=== PATIENT | female | born 1950 | race Two or more races ===

== ENCOUNTER 2016-10-30 18:30 | Inpatient (IN) | payer MEDICAID, OTHER ==
[~2016-10-30] VITALS: Ht 157.5 cm; Wt 113.9 kg
[2016-10-30 19:47] LABS: DEFINITIVE VIEW TRANSMISSION; Hematocrit 48.4 % (36.0-46.0); Mean Corpuscular Hemoglobin 27.8 pg (28.0-32.0); Mean Corpuscular Hgb Conc. 31.1 g/dL (32.0-36.0); Mean Corpuscular Volume 89.5 fL (80.0-100.0); Platelet Count (auto) 283 10^3/uL (140-450); Red Cell Distribution Width 13.5 % (11.6-16.0); SUSPECT VIEW TRANSMISSION; White Blood Cell 27.3 10^3/uL (4.4-10.8)
[2016-10-30 19:50] LABS: Metamyelocytes % 0; Myelocytes % 0; Promyelocytes % 0; Reactive Lymphocytes 0
[2016-10-30 19:58] LABS: Calcium 8.4 mg/dL (8.5-10.1)
[2016-10-30 20:01] LABS: BUN/Creatinine Ratio 13.9
[2016-10-30 20:03] LABS: Bilirubin, Total 0.5 mg/dL (0.2-1.0); Total Protein 7.4 g/dL (6.4-8.2)
[2016-10-30 20:09] LABS: Albumin 2.5 g/dL (3.4-5.0)
[2016-10-30 22:01] LABS: Anisocytosis Slight; Platelet Estimate Adequate
[2016-10-30] MEDS ORDERED: SODIUM CHLORIDE 0.9% 1,000 ML IV ONE (22:45)
[2016-10-30] MEDS ORDERED: ALBUTEROL SULF 2.5 MG/0.5ML(0.5%) NEB SOLN NEB ONE (23:45)
[2016-10-30] MEDS ORDERED: FUROSEMIDE 20 MG/2 ML VIAL IV ONE (23:45)
[2016-10-30] MEDS ORDERED: IPRATROPIUM BROM 0.5 MG/2.5ML INH SOL NEB ONE (23:45)
[2016-10-31] VITALS (47 sets, daily range): BP systolic 83–135; BP diastolic 42–85
[2016-10-31] MEDS ORDERED: VANCOMYCIN PER PHARMACY 0 MG IV SCH (00:30)
[2016-10-31] MEDS ORDERED: VANCOMYCIN 1GM/250ML D5W 250 ML IV ONE (00:30)
[2016-10-31] MEDS ORDERED: LACTULOSE 20Gm/30ML SOLN PO PRN (00:30)
[2016-10-31] MEDS ORDERED: LEVOFLOXACIN 500MG 100 ML IV ONE (00:30)
[2016-10-31] MEDS ORDERED: MORPHINE SULF INJ 2 MG/ML SYRINGE 1ML IV PRN (00:30)
[2016-10-31] MEDS ORDERED: NITROGLYCERIN 0.4 MG SL TAB SL PRN (00:30)
[2016-10-31] MEDS ORDERED: ONDANSETRON HCL 4 MG/2 ML VIAL IV PRN (00:30)
[2016-10-31 00:51] LABS: B-Type Natriuretic Peptide 59.5 pg/mL (0-100)
[2016-10-31 01:25] LABS: Lactic Acid 2.6 mmol/L (0.4-2.0)
[2016-10-31 01:28] LABS: REFLEX LACTIC ACID YES OR NO NO
[2016-10-31] MEDS: IPRATROPIUM BROM 0.5 MG/2.5ML INH SOL NEB SCH ×6 (04:20→22:42)
[2016-10-31] MEDS: ALBUTEROL SULF 2.5 MG/0.5ML(0.5%) NEB SOLN NEB SCH ×6 (04:21→22:42)
[2016-10-31] MEDS: MORPHINE SULF INJ 2 MG/ML SYRINGE 1ML IV PRN ×3 (04:54→21:46)
[2016-10-31] MEDS: methylPREDNISolone SOD SUCC 125 MG/2 ML VL IV SCH ×3 (05:00→21:39)
[2016-10-31 06:37] LABS: Albumin 2.1 g/dL (3.4-5.0); Calcium 7.9 mg/dL (8.5-10.1); Potassium 3.8 mmol/L (3.5-5.1)
[2016-10-31 06:40] LABS: BUN/Creatinine Ratio 16.2
[2016-10-31 06:42] LABS: Bilirubin, Total 0.4 mg/dL (0.2-1.0); Total Protein 6.7 g/dL (6.4-8.2)
[2016-10-31] MEDS ORDERED: FUROSEMIDE 40 MG/4 ML VIAL IV SCH (10:00)
[2016-10-31] MEDS: ENOXAPARIN SOD 30 MG/0.3 ML SYRINGE SC SCH (10:27)
[2016-10-31] MEDS: PANTOPRAZOLE SODIUM 40 MG/10 ML VIAL IV SCH (10:27)
[2016-10-31] MEDS: SODIUM CHLORIDE 0.9% 1,000 ML IV SCH ×2 (16:59→21:40)
[2016-10-31] MEDS: LEVOFLOXACIN 250MG 50 ML IV SCH ×2 (21:37→21:48)
[2016-11-01] MEDS: IPRATROPIUM BROM 0.5 MG/2.5ML INH SOL NEB SCH ×6 (02:22→22:10)
[2016-11-01] MEDS: ALBUTEROL SULF 2.5 MG/0.5ML(0.5%) NEB SOLN NEB SCH ×6 (02:22→22:10)
[2016-11-01] MEDS: MORPHINE SULF INJ 2 MG/ML SYRINGE 1ML IV PRN ×2 (03:03→22:21)
[2016-11-01 03:58] VITALS: BP 114/53
[2016-11-01 06:01] LABS: Hematocrit 41.5 % (36.0-46.0); Hemoglobin 13.1 g/dL (12.2-16.2); Mean Corpuscular Hemoglobin 28.2 pg (28.0-32.0); Mean Corpuscular Hgb Conc. 31.7 g/dL (32.0-36.0); Mean Corpuscular Volume 88.9 fL (80.0-100.0); Mean Platelet Volume 9.6 fL (7.4-10.4); Platelet Count (auto) 242 10^3/uL (140-450); Red Cell Distribution Width 13.5 % (11.6-16.0); SUSPECT VIEW TRANSMISSION; White Blood Cell 11.1 10^3/uL (4.4-10.8)
[2016-11-01 06:04] LABS: Metamyelocytes % 0; Myelocytes % 0; Promyelocytes % 0; Reactive Lymphocytes 0
[2016-11-01 06:14] LABS: BUN/Creatinine Ratio 24.7; Magnesium 2.3 mg/dL (1.6-2.6); Potassium 4.1 mmol/L (3.5-5.1)
[2016-11-01 06:26] LABS: Bilirubin, Total 0.2 mg/dL (0.2-1.0); Total Protein 6.7 g/dL (6.4-8.2)
[2016-11-01 07:46] VITALS: BP 108/56
[2016-11-01 08:38] LABS: Large Platelets FEW; Platelet Estimate Adequate
[2016-11-01] MEDS: PANTOPRAZOLE SODIUM 40 MG/10 ML VIAL IV SCH (09:27)
[2016-11-01] MEDS: ENOXAPARIN SOD 30 MG/0.3 ML SYRINGE SC SCH (09:28)
[2016-11-01] MEDS: methylPREDNISolone SOD SUCC 125 MG/2 ML VL IV SCH ×2 (09:28→21:30)
[2016-11-01 11:49] VITALS: BP 115/68
[2016-11-01 14:39] LABS: Urine Bilirubin Negative (Negative); Urine Color Yellow (Yellow); Urine Glucose TRACE mg/dL (Normal); Urine Hyaline Cast FEW /lpf (0 - 2); Urine Ketone Negative (Negative); Urine Mucus FEW (None Seen); Urine Nitrite Negative (Negative); Urine RBC 43 /hpf (0 - 4); Urine Squamous Epithelial Cell FEW /hpf (<5); Urine Urobilinogen Normal (Negative); Urine WBC Clumps PRESENT /hpf (None Seen); Urine pH 5.5 (5.0-8.0)
[2016-11-01 15:19] LABS: Urine Blood 2+ /uL (Negative)
[2016-11-01] MEDS ORDERED: FUROSEMIDE 40 MG/4 ML VIAL IV ONE (15:30)
[2016-11-01 15:49] VITALS: BP 111/61
[2016-11-01] MEDS: SODIUM CHLORIDE 0.9% 1,000 ML IV SCH (17:55)
[2016-11-01 20:00] VITALS: BP 103/55
[2016-11-01] MEDS ORDERED: LEVOFLOXACIN 250MG 50 ML IV SCH (21:00)
[2016-11-01] MEDS: SORE THROAT SPRAY 6OZ BOTTLE MT PRN (21:27)
[2016-11-01 23:59] VITALS: BP 107/50
[2016-11-02] MEDS: IPRATROPIUM BROM 0.5 MG/2.5ML INH SOL NEB SCH ×6 (02:38→22:15)
[2016-11-02] MEDS: ALBUTEROL SULF 2.5 MG/0.5ML(0.5%) NEB SOLN NEB SCH ×6 (02:38→22:15)
[2016-11-02] MEDS: MORPHINE SULF INJ 2 MG/ML SYRINGE 1ML IV PRN ×3 (02:42→08:07)
[2016-11-02 04:15] VITALS: BP 112/65
[2016-11-02 06:08] LABS: Hematocrit 42.6 % (36.0-46.0); Hemoglobin 13.6 g/dL (12.2-16.2); Mean Corpuscular Hemoglobin 28.2 pg (28.0-32.0); Mean Corpuscular Hgb Conc. 31.9 g/dL (32.0-36.0); Mean Corpuscular Volume 88.6 fL (80.0-100.0); Mean Platelet Volume 9.5 fL (7.4-10.4); Platelet Count (auto) 288 10^3/uL (140-450); Red Cell Distribution Width 13.4 % (11.6-16.0); SUSPECT VIEW TRANSMISSION
[2016-11-02 06:12] LABS: Metamyelocytes % 0; Myelocytes % 0; Promyelocytes % 0; Reactive Lymphocytes 0
[2016-11-02 06:30] LABS: BUN/Creatinine Ratio 34.9; Calcium 8.6 mg/dL (8.5-10.1); Potassium 3.9 mmol/L (3.5-5.1)
[2016-11-02] MEDS: SODIUM CHLORIDE 0.9% 1,000 ML IV SCH (07:15)
[2016-11-02 07:47] LABS: Large Platelets FEW; Platelet Estimate Adequate
[2016-11-02 08:00] VITALS: BP 132/83
[2016-11-02] MEDS ORDERED: LEVOFLOXACIN 500MG 100 ML IV SCH (10:00)
[2016-11-02] MEDS: PANTOPRAZOLE SODIUM 40 MG/10 ML VIAL IV SCH (10:09)
[2016-11-02] MEDS: ENOXAPARIN SOD 30 MG/0.3 ML SYRINGE SC SCH (10:10)
[2016-11-02] MEDS: methylPREDNISolone SOD SUCC 125 MG/2 ML VL IV SCH ×2 (10:10→21:32)
[2016-11-02 12:00] VITALS: BP 128/58
[2016-11-02] MEDS ORDERED: PANTOPRAZOLE 40 MG TAB PO ONE (13:15)
[2016-11-02 16:00] VITALS: BP 138/64
[2016-11-02 20:00] VITALS: BP 135/59
[2016-11-02] MEDS: LEVOFLOXACIN 750MG 150 ML IV SCH (21:31)
[2016-11-02] MEDS: ENOXAPARIN SOD 40 MG/0.4 ML SYRINGE SC SCH (21:32)
[2016-11-02] MEDS: HYDROcodone-ACET 5/325MG TAB PO PRN (21:33)
[2016-11-03] VITALS (7 sets, daily range): BP systolic 113–132; BP diastolic 57–85
[2016-11-03] MEDS: IPRATROPIUM BROM 0.5 MG/2.5ML INH SOL NEB SCH ×6 (02:18→23:24)
[2016-11-03] MEDS: ALBUTEROL SULF 2.5 MG/0.5ML(0.5%) NEB SOLN NEB SCH ×6 (02:18→23:24)
[2016-11-03] MEDS: SORE THROAT SPRAY 6OZ BOTTLE MT PRN (06:44)
[2016-11-03] MEDS: PANTOPRAZOLE 40 MG TAB PO SCH (10:40)
[2016-11-03] MEDS: ENOXAPARIN SOD 40 MG/0.4 ML SYRINGE SC SCH ×2 (10:40→21:22)
[2016-11-03] MEDS: methylPREDNISolone SOD SUCC 125 MG/2 ML VL IV SCH ×2 (10:40→21:22)
[2016-11-03] MEDS ORDERED: SODIUM CHLORIDE 0.9% 1,000 ML IV SCH (12:28)
[2016-11-03 14:00] LABS: Amylase 36 U/L (25-115)
[2016-11-03] MEDS ORDERED: ALBUTEROL SULF 2.5 MG/0.5ML(0.5%) NEB SOLN NEB PRN (15:45)
[2016-11-03] MEDS ORDERED: IPRATROPIUM BROM 0.5 MG/2.5ML INH SOL NEB PRN (15:45)
[2016-11-03] MEDS: LORazepam 0.5 MG TAB PO PRN (21:23)
[2016-11-04 05:36] VITALS: BP 115/63
[2016-11-04 05:51] LABS: Potassium 4.3 mmol/L (3.5-5.1)
[2016-11-04 05:57] LABS: Albumin 2.1 g/dL (3.4-5.0); BUN/Creatinine Ratio 33.3; Bilirubin, Total 0.3 mg/dL (0.2-1.0); Calcium 8.2 mg/dL (8.5-10.1)
[2016-11-04 06:01] LABS: Basophils # (auto) 0 uL; Eosinophils # (auto) 0 uL; Eosinophils % (auto) 0.1 % (0.0-7.0); Hemoglobin 14.5 g/dL (12.2-16.2); Lymphocytes # (auto) 1.3 uL; Lymphocytes % (auto) 11.8 % (10.0-50.0); Mean Corpuscular Hemoglobin 27.9 pg (28.0-32.0); Mean Corpuscular Hgb Conc. 31.5 g/dL (32.0-36.0); Mean Corpuscular Volume 88.4 fL (80.0-100.0); Mean Platelet Volume 8.9 fL (7.4-10.4); Monocytes # (auto) 0.1 uL; Monocytes % (auto) 1.2 % (0.0-12.0); Neutrophils # (auto) 9.4 uL; Neutrophils % (auto) 86.9 % (37.0-80.0); Platelet Count (auto) 299 10^3/uL (140-450); Red Cell Distribution Width 13.3 % (11.6-16.0); White Blood Cell 10.8 10^3/uL (4.4-10.8)
[2016-11-04] MEDS: IPRATROPIUM BROM 0.5 MG/2.5ML INH SOL NEB SCH ×3 (06:46→19:10)
[2016-11-04] MEDS: ALBUTEROL SULF 2.5 MG/0.5ML(0.5%) NEB SOLN NEB SCH ×3 (06:46→19:10)
[2016-11-04] MEDS: HYDROcodone-ACET 5/325MG TAB PO PRN ×2 (07:59→23:54)
[2016-11-04 08:34] VITALS: BP 109/67
[2016-11-04] MEDS: methylPREDNISolone SOD SUCC 125 MG/2 ML VL IV SCH (09:29)
[2016-11-04] MEDS: ENOXAPARIN SOD 40 MG/0.4 ML SYRINGE SC SCH (09:29)
[2016-11-04] MEDS: PANTOPRAZOLE 40 MG TAB PO SCH (09:29)
[2016-11-04] MEDS: SODIUM CHLORIDE 0.9% 1,000 ML IV SCH (13:29)
[2016-11-04 13:53] VITALS: BP 124/68
[2016-11-04 16:54] VITALS: BP 137/66
[2016-11-04] MEDS: LEVOFLOXACIN 750MG 150 ML IV SCH (21:20)
[2016-11-04] MEDS: LORazepam 0.5 MG TAB PO PRN (21:26)
[2016-11-04 21:45] VITALS: BP 121/62
[2016-11-05] MEDS: IPRATROPIUM BROM 0.5 MG/2.5ML INH SOL NEB SCH ×4 (00:45→19:08)
[2016-11-05] MEDS: ALBUTEROL SULF 2.5 MG/0.5ML(0.5%) NEB SOLN NEB SCH ×4 (00:45→19:08)
[2016-11-05 05:05] VITALS: BP 99/56
[2016-11-05] MEDS: SODIUM CHLORIDE 0.9% 1,000 ML IV SCH (06:21)
[2016-11-05] MEDS: LORazepam 0.5 MG TAB PO PRN (06:29)
[2016-11-05 06:34] LABS: BUN/Creatinine Ratio 33.8; Calcium 8.1 mg/dL (8.5-10.1); Potassium 3.9 mmol/L (3.5-5.1)
[2016-11-05 09:00] VITALS: BP 103/60
[2016-11-05] MEDS: methylPREDNISolone SOD SUCC 40 MG/ML VL IV SCH (10:37)
[2016-11-05] MEDS: PANTOPRAZOLE 40 MG TAB PO SCH (10:38)
[2016-11-05] MEDS: ENOXAPARIN SOD 40 MG/0.4 ML SYRINGE SC SCH (10:39)
[2016-11-05] MEDS: HYDROcodone-ACET 5/325MG TAB PO PRN ×2 (14:33→21:26)
[2016-11-05 14:54] VITALS: BP 123/81
[2016-11-05 15:58] VITALS: BP 122/74
[2016-11-05 22:00] VITALS: BP 117/52
[2016-11-06] MEDS: ALBUTEROL SULF 2.5 MG/0.5ML(0.5%) NEB SOLN NEB SCH ×3 (01:02→11:29)
[2016-11-06] MEDS: IPRATROPIUM BROM 0.5 MG/2.5ML INH SOL NEB SCH ×3 (01:02→11:29)
[2016-11-06] MEDS: SODIUM CHLORIDE 0.9% 1,000 ML IV SCH (03:30)
[2016-11-06 05:00] VITALS: BP 102/62
[2016-11-06 06:27] LABS: BUN/Creatinine Ratio 35.8; Calcium 7.9 mg/dL (8.5-10.1)
[2016-11-06] MEDS: HYDROcodone-ACET 5/325MG TAB PO PRN (06:41)
[2016-11-06 09:00] VITALS: BP 109/70
[2016-11-06] MEDS: methylPREDNISolone SOD SUCC 40 MG/ML VL IV SCH (10:02)
[2016-11-06] MEDS: PANTOPRAZOLE 40 MG TAB PO SCH (10:02)
[2016-11-06] MEDS: ENOXAPARIN SOD 40 MG/0.4 ML SYRINGE SC SCH (10:02)
[2016-11-06] MEDS: LEVOFLOXACIN 750MG 150 ML IV SCH ×2 (10:03→10:34)
[2016-11-06] MEDS ORDERED: LEVO750T3 PO (11:29)
[2016-11-06 13:00] VITALS: BP 106/69
== END 2016-11-06 16:00 | DRG 720 ==
LOC: ER 18:32 → TELE 18:33 → DOU IN ICU 10-31 02:45 → TELE-CENTR 11-03 13:28
PROVIDERS: ADMIT Family Medicine; ATTEND Internal Medicine
DX: A40.3 Sepsis due to Streptococcus pneumoniae (principal); J96.21 Acute and chronic respiratory failure with hypoxia; N17.0 Acute kidney failure with tubular necrosis; I13.0 Hypertensive heart and chronic kidney disease with heart failure and stage 1 through stage 4 chronic kidney disease, or unspecified chronic kidney disease; G93.41 Metabolic encephalopathy; J18.9 Pneumonia, unspecified organism; N18.4 Chronic kidney disease, stage 4 (severe); I50.9 Heart failure, unspecified; J98.11 Atelectasis; J44.0 Chronic obstructive pulmonary disease with (acute) lower respiratory infection; T39.395A Adverse effect of other nonsteroidal anti-inflammatory drugs [NSAID], initial encounter; J45.909 Unspecified asthma, uncomplicated; J44.1 Chronic obstructive pulmonary disease with (acute) exacerbation; E66.01 Morbid (severe) obesity due to excess calories; M19.90 Unspecified osteoarthritis, unspecified site; Z88.0 Allergy status to penicillin; Z87.891 Personal history of nicotine dependence; Z68.42 Body mass index [BMI] 45.0-49.9, adult; Z99.81 Dependence on supplemental oxygen; Y92.89 Other specified places as the place of occurrence of the external cause
CPT/HCPCS: 36415; 71010; 71020; 71250; 74176; 76775; 80048; 80053; 80061; 80202; 81001; 82150; 82570; 83036; 83605; 83690; 83735; 83880; 84100; 84156; 84300; 84484; 85007; 85025; 85027; 85049; 85652; 86141; 87040; 87070; 87077; 87081; 87086; 87186; 87205; 87400; 93005; 93306; 94640; 96361; 96365; 96375; C9113; J1956